=== PATIENT | female | born 2000 | race Caucasian/White ===

== ENCOUNTER 2023-05-06 11:48 | Emergency (ER) | payer BC ==
[~2023-05-06] VITALS: Ht 162.5 cm; Wt 59.0 kg
--- NOTE | 2023-05-06 11:59 | ED GI ---
General Chief Complaint: Abdominal/GI Problems Stated Complaint: VOMITING | ABD PAIN Source of Information: Patient Exam Limitations: No Limitations History of Present Illness Date Seen by Provider: May 06, 2023 Time Seen by Provider: 11:59 Initial Comments Patient is a 23yo female who presents to the Emergency Department with lower ab dominal pain x24h with N/V. She went to the [facility] [place] and was sent here for evaluation. She states she started her menstrual period 2 days ago and it is slightly heavier than normal. No control. No abnormal vaginal discharge. She is having diarrhea. No dysuria/urgency. No known fever. No prios abdominal surgeries. She does smoke marijuana. last use 2 days ago. Has never had vomiting with THC use before. Has not taken anything for symptoms. Only takes an "anxiety" medication. Timing/Duration: 24 Hours Severity/Quality: Severe, Cramping Location: RLQ, LLQ Radiation: No Radiation Modifying Factors: Worsens With Lying down, Worsens With Movement Associated Symptoms: Nausea/Vomiting Allergies and Home Medications Allergies Coded Allergies: No Known Drug Allergies (Unverified , 05/06/23) Patient Home Medication List Home Medication List Reviewed: Yes Ondansetron (Ondansetron Odt) 4 Mg Tab.rapdis, 4 MG SL Q8H PRN for NAUSEA/VOMITING Prescribed by: ARACELI MCCRACKEN on 05/06/23 1432 Review of Systems Review of Systems Constitutional: see HPI, weakness EENTM: No Symptoms Reported Respiratory: No Symptoms Reported Cardiovascular: No Symptoms Reported Gastrointestinal: Abdominal Pain, Diarrhea, Nausea, Vomiting Genitourinary: No Symptoms Reported Musculoskeletal: no symptoms reported Skin: no symptoms reported Psychiatric/Neurological: Headache Physical Exam Vital Signs Vital Signs - First Documented 05/06/23 11:54 Temp 35.8 Pulse 78 Resp 20 B/P (MAP) 121/86 (98) Pulse Ox 100 O2 Delivery Room Air Capillary Refill : Height/Weight/BMI Height: '" Weight: lbs. oz. kg; BMI Method: General Appearance: WD/WN, mild distress HEENT: PERRL/EOMI Respiratory: lungs clear, normal breath sounds, no respiratory distress, no accessory muscle use Cardiovascular: regular rate, rhythm Gastrointestinal: soft, abnormal bowel sounds (Hypoactive); No distended; guarding (voluntary); No rebound; tenderness, other (neg rovsing's) Extremities: normal range of motion, normal inspection Back: no CVA tenderness Neurologic/Psychiatric: alert, normal mood/affect, oriented x 3 Skin: warm/dry, pallor Progress/Results/Core Measures Results/Orders Lab Results Laboratory Tests Test 05/06/23 12:06 05/06/23 12:30 Range/Units White Blood Count 16.4 H 4.3-11.0 10^3/uL Red Blood Count 5.46 H 3.80-5.11 10^6/uL Hemoglobin 13.5 11.5-16.0 g/dL Hematocrit 42 35-52 % Mean Corpuscular Volume 77 L 80-99 fL Mean Corpuscular Hemoglobin 25 25-34 pg Mean Corpuscular Hemoglobin Concent 32 32-36 g/dL Red Cell Distribution Width 13.5 10.0-14.5 % Platelet Count 345 130-400 10^3/uL Mean Platelet Volume 10.8 9.0-12.2 fL Immature Granulocyte % (Auto) 1 % Neutrophils (%) (Auto) 91 H 42-75 % Lymphocytes (%) (Auto) 6 L 12-44 % Monocytes (%) (Auto) 2 0-12 % Eosinophils (%) (Auto) 0 0-10 % Basophils (%) (Auto) 0 0-10 % Neutrophils # (Auto) 14.9 H 1.8-7.8 10^3/uL Lymphocytes # (Auto) 1.0 1.0-4.0 10^3/uL Monocytes # (Auto) 0.4 0.0-1.0 10^3/uL Eosinophils # (Auto) 0.0 0.0-0.3 10^3/uL Basophils # (Auto) 0.1 0.0-0.1 10^3/uL Immature Granulocyte # (Auto) 0.1 0.0-0.1 10^3/uL Neutrophils % (Manual) 94 % Lymphocytes % (Manual) 4 % Monocytes % (Manual) 2 % Blood Morphology Comment NORMAL Sodium Level 140 135-145 MMOL/L Potassium Level 3.9 3.6-5.0 MMOL/L Chloride Level 105 98-107 MMOL/L Carbon Dioxide Level 14 L 21-32 MMOL/L Anion Gap 21 H 5-14 MMOL/L Blood Urea Nitrogen 15 7-18 MG/DL Creatinine 1.03 0.60-1.30 MG/DL Estimat Glomerular Filtration Rate 79 BUN/Creatinine Ratio 15 Glucose Level 141 H 70-105 MG/DL Calcium Level 10.3 H 8.5-10.1 MG/DL Corrected Calcium 8.5-10.1 MG/DL Total Bilirubin 0.9 0.1-1.0 MG/DL Aspartate Amino Transf (AST/SGOT) 15 5-34 U/L Alanine Aminotransferase (ALT/SGPT) 13 0-55 U/L Alkaline Phosphatase 70 40-136 U/L Total Protein 8.9 H 6.4-8.2 GM/DL Albumin 5.1 H 3.2-4.5 GM/DL Serum Test, Qualitative NEGATIVE NEGATIVE SARS-CoV-2 RNA (RT-PCR) Not Detected Not Detecte My Orders Orders - ARACELI MCCRACKEN MD Ed Iv/Invasive Line Start (05/06/23 12:08) Cbc And Automated Diff (05/06/23 12:08) Comprehensive Metabolic Panel (05/06/23 12:08) Urine Bedside (05/06/23 12:08) Lactated Ringers 1,000 Ml (Lactated Ring (05/06/23 12:15) Ondansetron Injection (Ondansetron Inj (05/06/23 12:15) Hcg,Qualitative Serum (05/06/23 12:17) Covid 19 Inhouse Test (05/06/23 12:17) Manual Differential (05/06/23 12:06) Lactated Ringers 1,000 Ml (Lactated Ring (05/06/23 13:15) Ketorolac Injection (Ketorolac Injection (05/06/23 13:30) Ct Abdomen/Pelvis W (05/06/23 13:16) Iohexol Injection (Omnipaque 350 Mg/Ml 1 (05/06/23 13:30) Received Contrast (Hold Metformin- Contr (05/06/23 13:30) Ns (Ivpb) 100 Ml (Sodium Chloride 0.9% 1 (05/06/23 13:30) Prochlorperazine Injection (Prochlorpera (05/06/23 15:00) Diphenhydramine Injection (Diphenhydram (05/06/23 15:00) Medications Given in ED Vital Signs/I&O 05/06/23 05/06/23 11:54 16:15 Temp 35.8 35.8 Pulse 78 70 Resp 20 21 B/P (MAP) 121/86 (98) 121/69 Pulse Ox 100 100 O2 Delivery Room Air Room Air 05/07/23 00:00 Intake Total 2000 ml Balance 2000 ml Progress Progress Note #1: Time: 13:18 Progress Note Patient re-evaluated at this time, nausea better, pain a "3-4". She is more specifically tender to palpation in the LLQ. No rebound tenderness. Noted to have leukocytosis of 16k. But is also profoundly dry - CO2 on Chem is 14. She is not quite finished with her first liter of IVF; second liter ordered and toradol 15mg for pain. Will CT to rule out appy vs colitis. Progress Note #2: Time: 14:33 Progress Note Patient seen and examined by me. Evaluation today includes physical exam, CBC, Chem-12, serum test, COVID test. CT abdomen and pelvis with IV contrast also obtained. Pertinent physical exam findings reveal well-developed well-nourished female in moderate distress due to retching, dry heaving. Vital signs are stable. She is afebrile. Oral mucosa is dry. The patient is very pale. Heart is regular, not tachycardic, lungs are clear. Abdomen is diffusely tender in the lower quadrants bilaterally and in the suprapubic region with voluntary guarding. Very hypoactive bowel sounds are noted. Her abdomen is nondistended. Negative heeltap. Negative Rovsing's. No rebound tenderness. Her skin reveals no rashes. Normal neurologic function. Differential diagnosis includes acute gastroenteritis, acute appendicitis, colitis, viral syndrome. Labs independently reviewed and interpreted by me. I did independently review the patient's urinalysis from outlying facility which was quite concentrated and revealed no evidence of infection. Her CBC shows a white count of 16.4 with 91% segmented neutrophils. Normal hemoglobin hematocrit and platelet count. Chemistry generally unremarkable other than a decreased CO2 at 14 with an anion gap of 21. Suspect lactic acidosis however I did not check a lactic acid specifically. Her glucose was mildly elevated at 141. Serum test is negative, COVID test is negative. Patient is treated in the emergency department with a milligrams of Zofran IV, she received 2 L of lactated Ringer's IV and subsequent to that 5 mg of Compazine and [address] of [address]ryl IV. CT abdom en and pelvis with IV contrast per radiology revealed no evidence of acute surgical pathology. Patient had persistent nausea until the Compazine and Benadryl were administered. Once her IV fluids were completed she felt much better. As she has no evidence of acute appendicitis or any other acute surgical pathology on CT most likely scenario is acute gastroenteritis/colitis. Also concerning would be the fact that the patient is a daily marijuana smoker although she has not had hyperemesis due to THC in the past that is a distinct possibility. Patient was recommended to discontinue marijuana usage. She was given a prescription for Zofran for home as well as advised to take [id number] Pepcid for the next week. She verbalized understanding of the discharge instructions. Return precautions provided in both verbal and written format. All questions are sought and answered. Patient is improved at discharge Diagnostic Imaging Diagonstic Imaging: CT Comments [facility], [place] NAME: KETANDILSHAD Claude MED REC#: [id number] PT STATUS: REG ER : 2000 PHYSICIAN: ARACELI MCCRACKEN MD ADMIT DATE: 05/06/23/ER Draft Date of Exam:05/06/23 CT ABDOMEN/PELVIS W PROCEDURE: CT abdomen and pelvis with contrast. TECHNIQUE: Multiple contiguous axial images were obtained through the abdomen and pelvis after administration of intravenous contrast. Auto Exposure Controls were utilized during the CT exam to meet ALARA standards for radiation dose reduction. All CT scans use one or more of the following dose optimizing techniques: automated exposure control, MA and/or KvP adjustment based on patient size and exam type or iterative reconstruction. Date: May 06, 2023. Indication: 23-year-old female, nausea and vomiting. Left lower quadrant abdominal pain. Comparison: None. Findings: There is a 4 mm right lower lobe pulmonary nodule on axial image 9. The additional visualized portions of the lung bases are clear. The heart is not enlarged. There is no pericardial effusion. The liver is unremarkable in size and contour. There is no identified liver lesion. The main, right, left portal veins are patent. The gallbladder is unremarkable. There is no biliary ductal dilation. Unremarkable appearance of the pancreatic parenchyma. The spleen is normal in size. The adrenal glands are unremarkable. Unremarkable appearance of the renal parenchyma. The urinary collecting systems are not distended. There is no identified renal or ureteral stone. Urinary bladder is underdistended and not well evaluated. Low attenuation tubular structure in the vagina most likely reflects a tampon. The intestinal tract is not distended. There is low-attenuation wall thickening of the transverse colon and also involving the right colon. The terminal ileum is unremarkable. There is no evidence of acute appendicitis. There is no free intraperitoneal air. There is no drainable fluid collection. No free fluid in the abdomen or pelvis. There is no identified abnormally enlarged lymph node in the abdomen or pelvis meeting CT size criteria for adenopathy. There is no identified acute bony abnormality. Impression: 1. Wall thickening of the right colon and transverse colon consistent with a nonspecific colitis. Infectious and inflammatory etiologies are favored. Dictated on workstation # [id number] Dict: 05/06/23 1349 Trans: 05/06/23 1400 MARY [id number] Interpreted by: TAZ HOLLIS MD Electronically signed by: Departure Impression Primary Impression: Nausea and vomiting Qualified Codes: R11.14 - Bilious vomiting Additional Impression: Colitis Disposition: HOME, SELF-CARE Condition: Improved Departure-Patient Inst. Decision time for Depature: 14:28 Referrals: NO,LOCAL PHYSICIAN (PCP/Family) Primary Care Physician Patient Instructions: Nausea and Vomiting, Adult ED Add. Discharge Instructions: Clear Liquids for the next 24 hours and then slowly advance your diet as tolerated. Use the Ondansetron (Zofran) 4mg every 6-8 hours for nausea. I would suggest over the counter Famotidine (Pepcid) 20mg twice a day for 1 week - while your gut is getting back to normal. If you develop a fever over 101, worsening symptoms (blood in your stool or vomit) please return to the Emergency Department for re-evaluation. No smoking for the next week. Scripts Ondansetron (Ondansetron Odt) 4 Mg Tab.rapdis 4 MG SL Q8H PRN for NAUSEA/VOMITING, #15 TAB Prov: ARACELI MCCRACKEN MD 05/06/23 Work/School Note: School/Childcare Release, Date Seen in the Emergency Department: May 06, 2023 Time Dismissed from Emergency Department: 14:32 Return to School: May 08, 2023 Work Release Form Date Seen in the Emergency Department: May 06, 2023 Return to Work: May 08, 2023 ARACELI MCCRACKEN MD May 06, 2023 11:59
[2023-05-06] MEDS ORDERED: ONDANSETRON INJECTION 4 MG/2 ML (SDV) IVP ONE (12:15)
[2023-05-06 12:21] LABS: BASOPHILS # (AUTO) 0.1 10^3/uL (0.0-0.1); BASOPHILS % (AUTO) 0 % (0-10); EOSINOPHILS % (AUTO) 0 % (0-10); HEMATOCRIT 42 % (35-52); HEMOGLOBIN 13.5 g/dL (11.5-16.0); LYMPHOCYTES % (AUTO) 6 % (12-44); MEAN CORPUSCULAR HEMOGLOBIN 25 pg (25-34); MEAN CORPUSCULAR HGB CONC 32 g/dL (32-36); MEAN CORPUSCULAR VOLUME 77 fL (80-99); MEAN PLATELET VOLUME 10.8 fL (9.0-12.2); MONOCYTES # (AUTO) 0.4 10^3/uL (0.0-1.0); MONOCYTES % (AUTO) 2 % (0-12); NEUTROPHILS # (AUTO) 14.9 10^3/uL (1.8-7.8); NEUTROPHILS % (AUTO) 91 % (42-75); PLATELET COUNT 345 10^3/uL (130-400); WHITE BLOOD COUNT 16.4 10^3/uL (4.3-11.0)
[2023-05-06 12:23] LABS: ALBUMIN 5.1 GM/DL (3.2-4.5); CHLORIDE 105 MMOL/L (98-107); POTASSIUM 3.9 MMOL/L (3.6-5.0); SODIUM 140 MMOL/L (135-145)
[2023-05-06 12:24] LABS: CALCIUM 10.3 MG/DL (8.5-10.1)
[2023-05-06 12:25] LABS: GLUCOSE 141 MG/DL (70-105)
[2023-05-06] MEDS: LACTATED RINGERS 1,000 ML 1,000 ML IV SCH ×2 (12:25→14:12)
[2023-05-06 12:26] LABS: TOTAL PROTEIN 8.9 GM/DL (6.4-8.2)
[2023-05-06 12:27] LABS: BILIRUBIN,TOTAL 0.9 MG/DL (0.1-1.0); CARBON DIOXIDE 14 MMOL/L (21-32)
[2023-05-06 12:29] LABS: ALKALINE PHOSPHATASE 70 U/L (40-136); CREATININE SERUM 1.03 MG/DL (0.60-1.30); GFR ESTIMATED 79
[2023-05-06 12:30] LABS: BUN/CREATININE RATIO 15
[2023-05-06 12:32] LABS: ALANINE AMINOTRANSFERASE 13 U/L (0-55)
[2023-05-06 12:34] LABS: LYMPHOCYTES % (MANUAL) 4 %; MONOCYTES % (MANUAL) 2 %; NEUTROPHILS % (MANUAL) 94 %; RBC MORPH NORMAL
[2023-05-06] MEDS ORDERED: LACTATED RINGERS 1,000 ML 1,000 ML IV SCH (13:15)
[2023-05-06] MEDS ORDERED: IOHEXOL 350 MG/ML 100 ML (OMNIPAQUE 350) VIAL IV ONE (13:30)
[2023-05-06] MEDS ORDERED: HOLD METFORMIN - RECEIVED CONTRAST 20 ML VIAL IV SCH (13:30)
[2023-05-06] MEDS ORDERED: NS 100 ML (IVPB) BAG IV ONE (13:30)
[2023-05-06] MEDS ORDERED: KETOROLAC INJ 15 MG/ML VIAL IVP ONE (13:30)
--- NOTE | 2023-05-06 14:00 | Diagnostic Imaging Report ---
PROCEDURE: CT abdomen and pelvis with contrast. TECHNIQUE: Multiple contiguous axial images were obtained through the abdomen and pelvis after administration of intravenous contrast. Auto Exposure Controls were utilized during the CT exam to meet ALARA standards for radiation dose reduction. All CT scans use one or more of the following dose optimizing techniques: automated exposure control, MA and/or KvP adjustment based on patient size and exam type or iterative reconstruction. Date: May 06, 2023. Indication: 23-year-old female, nausea and vomiting. Left lower quadrant abdominal pain. Comparison: None. Findings: There is a 4 mm right lower lobe pulmonary nodule on axial image 9. The additional visualized portions of the lung bases are clear. The heart is not enlarged. There is no pericardial effusion. The liver is unremarkable in size and contour. There is no identified liver lesion. The main, right, left portal veins are patent. The gallbladder is unremarkable. There is no biliary ductal dilation. Unremarkable appearance of the pancreatic parenchyma. The spleen is normal in size. The adrenal glands are unremarkable. Unremarkable appearance of the renal parenchyma. The urinary collecting systems are not distended. There is no identified renal or ureteral stone. Urinary bladder is underdistended and not well evaluated. Low attenuation tubular structure in the vagina most likely reflects a tampon. The intestinal tract is not distended. There is low-attenuation wall thickening of the transverse colon and also involving the right colon. The terminal ileum is unremarkable. There is no evidence of acute appendicitis. There is no free intraperitoneal air. There is no drainable fluid collection. No free fluid in the abdomen or pelvis. There is no identified abnormally enlarged lymph node in the abdomen or pelvis meeting CT size criteria for adenopathy. There is no identified acute bony abnormality. Impression: 1. Wall thickening of the right colon and transverse colon consistent with a nonspecific colitis. Infectious and inflammatory etiologies are favored. Dictated by: Dictated on workstation # [id number]
[2023-05-06] MEDS ORDERED: ONDA4TAB11 SL (14:32)
[2023-05-06] MEDS ORDERED: diphenhydrAMINE INJ 50 MG/ML VIAL IVP ONE (15:00)
[2023-05-06] MEDS ORDERED: PROCHLORPERAZINE INJ 10 MG/2ML VIAL IV ONE (15:00)
[2023-05-06 16:15] VITALS: BP 121/69
== END 2023-05-06 16:21 | disposition home or self-care (01) ==
LOC: ER 11:52
DX: K52.9 Noninfective gastroenteritis and colitis, unspecified (principal); R79.81 Abnormal blood-gas level; Z20.822 Contact with and (suspected) exposure to COVID-19
CPT/HCPCS: 36415; 74177; 80053; 84703; 85007; 85027; 87636

== ENCOUNTER 2023-05-30 16:53 | Emergency (ER) | payer BC ==
[~2023-05-30] VITALS: Ht 162 cm; Wt 61.2 kg
[~2023-05-30 16:53] MED LIST: ONDA4TAB11 SL
[2023-05-30] MEDS ORDERED: NS IV 1000 ML 1,000 ML ONE (17:19)
[2023-05-30] MEDS ORDERED: ONDANSETRON INJECTION 4 MG/2 ML (SDV) ONE (17:19)
--- NOTE | 2023-05-30 17:24 | ED Abdominal Pain ---
General Chief Complaint: Abdominal/GI Problems Stated Complaint: VOMITING/LOWER ABD PAIN Nursing Triage Note: PATIENT PRESENTS TO ED WITH C/O ABD. PAIN THAT STARTED DURING THE DAY YESTERDAY. PATIENT STATES SHE WOKE UP THIS MORNING AROUND 0800 VOMITING. PATIENT WAS SEEN FOR THIS ROUGHLY AROUND 05/06/23 AND WAS DX WITH INFLAMMATION OF THE COLON. PATIENT AND BOYFRIEND AMB. TO ROOM 10. Source of Information: Patient Exam Limitations: No Limitations History of Present Illness Date Seen by Provider: May 30, 2023 Time Seen by Provider: 17:21 Initial Comments Patient is a 23-year-old female presents ED with lower abdominal pain. Abdominal pain started yesterday. Described as pressure and fairly constant. Started vomiting today described as yellowish. She states she was here May [address] scan of her abdomen pelvis which was positive for colitis. She was treated with Zofran and conservative measures with improvement. She states today symptoms feel very similar. She denies any pain with urination frequent urination, cough, runny nose, sore throat, chest pain or shortness of breath. Last menstrual cycle earlier this month. No recent travels, change in medications or any change in foods. Patient actively vomiting on arrival. Patient denies any diarrhea, rash. She states she was seen here earlier this month for similar type symptoms diagnosed with colitis treated with Zofran with improvement Allergies and Home Medications Allergies Coded Allergies: No Known Drug Allergies (Unverified , 05/06/23) Patient Home Medication List Home Medication List Reviewed: Yes Ondansetron (Ondansetron Odt) 4 Mg Tab.rapdis, 4 MG SL Q8H PRN for NAUSEA/VOMITING Prescribed by: ARACELI MCCRACKEN on 05/06/23 143 Prochlorperazine Maleate (Compazine) 5 Mg Tablet, 5 MG PO Q6H Prescribed by: MAYDA FRANCISCO on 05/30/232009 Prochlorperazine Maleate (Compazine) 5 Mg Tablet, 5 MG PO Q6H Prescribed by: MAYDA FRANCISCO on 05/30/232040 Review of Systems Review of Systems Constitutional: No chills, No diaphoresis, No malaise, No weakness EENTM: No Double Vision, No Eye Pain Respiratory: Denies Cough, Denies Orthopnea Cardiovascular: Denies Chest Pain Gastrointestinal: Abdominal Pain; Denies Diarrhea; Nausea, Vomiting Genitourinary: Denies Burning, Denies Discharge, Denies Drainage, Denies Frequency, Denies Flank Pain Musculoskeletal: No back pain, No joint pain Skin: No change in color, No change in hair/nails All Other Systems Reviewed Negative Unless Noted: Yes Past Anycuqn-Rhrjcf-Thxend Hx Patient Social History Tobacco Use?: No Substance use?: Yes Substance type: Marijuana Additional substance use comme: 05/29/23 Alcohol Use?: Yes Alcohol type: Beer, Hard Liquor, Wine Alcohol Frequency: Several times a month Pt feels they are or have been: No Past Medical History Surgery/Hospitalization HX: ANXIETY Last Menstrual Period: May 06, 2023 Physical Exam Vital Signs Vital Signs - First Documented 05/30/23 17:06 Temp 36.2 Pulse 64 Resp 18 B/P (MAP) 130/82 (98) Pulse Ox 98 O2 Delivery Room Air Capillary Refill : Less Than 3 Seconds Height/Weight/BMI Height: '" Weight: lbs. oz. kg; 23.00 BMI Method: General Appearance: WD/WN, no apparent distress HEENT: PERRL/EOMI, normal ENT inspection, TMs normal, pharynx normal Neck: non-tender, full range of motion, supple Respiratory: chest non-tender, lungs clear, normal breath sounds, no respiratory distress, no accessory muscle use Cardiovascular: regular rate, rhythm, no edema, no gallop, no JVD Gastrointestinal: normal bowel sounds, soft, no organomegaly, tenderness (Left and right lower quadrant tenderness, suprapubic tenderness. 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, no motor/sensory deficits, alert, normal mood/affect, oriented x 3 Skin: normal color, warm/dry Progress/Results/Core Measures Results/Orders Lab Results Laboratory Tests Test 05/30/23 17:06 05/30/23 17:27 Range/Units White Blood Count 13.7 H 4.3-11.0 10^3/uL Red Blood Count 5.33 H 3.80-5.11 10^6/uL Hemoglobin 13.3 11.5-16.0 g/dL Hematocrit 41 35-52 % Mean Corpuscular Volume 77 L 80-99 fL Mean Corpuscular Hemoglobin 25 25-34 pg Mean Corpuscular Hemoglobin Concent 32 32-36 g/dL Red Cell Distribution Width 14.4 10.0-14.5 % Platelet Count 263 130-400 10^3/uL Mean Platelet Volume 11.1 9.0-12.2 fL Immature Granulocyte % (Auto) 0 % Neutrophils (%) (Auto) 84 H 42-75 % Lymphocytes (%) (Auto) 11 L 12-44 % Monocytes (%) (Auto) 4 0-12 % Eosinophils (%) (Auto) 0 0-10 % Basophils (%) (Auto) 0 0-10 % Neutrophils # (Auto) 11.4 H 1.8-7.8 10^3/uL Lymphocytes # (Auto) 1.5 1.0-4.0 10^3/uL Monocytes # (Auto) 0.6 0.0-1.0 10^3/uL Eosinophils # (Auto) 0.1 0.0-0.3 10^3/uL Basophils # (Auto) 0.1 0.0-0.1 10^3/uL Immature Granulocyte # (Auto) 0.1 0.0-0.1 10^3/uL Sodium Level 141 135-145 MMOL/L Potassium Level 3.5 L 3.6-5.0 MMOL/L Chloride Level 107 98-107 MMOL/L Carbon Dioxide Level 21 21-32 MMOL/L Anion Gap 13 5-14 MMOL/L Blood Urea Nitrogen 7 7-18 MG/DL Creatinine 0.78 0.60-1.30 MG/DL Estimat Glomerular Filtration Rate 111 BUN/Creatinine Ratio 9 Glucose Level 98 70-105 MG/DL Calcium Level 10.0 8.5-10.1 MG/DL Corrected Calcium 8.5-10.1 MG/DL Total Bilirubin 0.7 0.1-1.0 MG/DL Aspartate Amino Transf (AST/SGOT) 12 5-34 U/L Alanine Aminotransferase (ALT/SGPT) 11 0-55 U/L Alkaline Phosphatase 60 40-136 U/L Total Protein 8.8 H 6.4-8.2 GM/DL Albumin 5.0 H 3.2-4.5 GM/DL Lipase 10 8-78 U/L Urine Color YELLOW Urine Clarity CLEAR Urine pH >=9.0 5-9 Urine Specific [place] 1.020 1.016-1.022 Urine Protein 2+ H NEGATIVE Urine Glucose (UA) NEGATIVE NEGATIVE Urine Ketones 4+ H NEGATIVE Urine Nitrite NEGATIVE NEGATIVE Urine Bilirubin 1+ H NEGATIVE Urine Urobilinogen 1.0 < = 1.0 MG/DL Urine Leukocyte Esterase NEGATIVE NEGATIVE Urine RBC (Auto) NEGATIVE NEGATIVE Urine RBC RARE /HPF Urine WBC 2-5 /HPF Urine Squamous Epithelial Cells 25-50 H /HPF Urine Crystals PRESENT H /LPF Urine Amorphous Sediment RARE [place] PHOSPHATE H /LPF Urine Bacteria LARGE H /HPF Urine Casts NONE /LPF Urine Mucus LARGE H /LPF Urine Culture Indicated NO Urine Test NEGATIVE NEGATIVE Urine Opiates Screen NEGATIVE NEGATIVE Urine Oxycodone Screen NEGATIVE NEGATIVE Urine Methadone Screen NEGATIVE NEGATIVE Urine Propoxyphene Screen NA NEGATIVE Urine Barbiturates Screen NEGATIVE NEGATIVE Ur Tricyclic Antidepressants Screen NEGATIVE NEGATIVE Urine Phencyclidine Screen NEGATIVE NEGATIVE Urine Amphetamines Screen NEGATIVE NEGATIVE Urine Methamphetamines Screen NEGATIVE NEGATIVE Urine Benzodiazepines Screen NEGATIVE NEGATIVE Urine Cocaine Screen NEGATIVE NEGATIVE Urine Cannabinoids Screen POSITIVE H NEGATIVE My Orders Orders - YING NOVA Ua Culture If Indicated (05/30/23 16:54) Hcg,Qualitative Urine (05/30/23 16:54) Cbc And Automated Diff (05/30/23 17:20) Comprehensive Metabolic Panel (05/30/23 17:20) Lipase (05/30/23 17:20) Ondansetron Injection (Ondansetron Inj (05/30/23 17:19) Ns Iv 1000 Ml (Ns Iv 1000 Ml) (05/30/23 17:19) Ondansetron Injection (Ondansetron Inj (05/30/23 17:45) Ns Iv 1000 Ml (Ns Iv 1000 Ml) (05/30/23 17:31) Drug Screen Stat (Urine) (05/30/23 17:45) Promethazine Injection (Promethazine I (05/30/23 18:00) Ns Iv 1000 Ml (Ns Iv 1000 Ml) (05/30/23 18:09) Ondansetron Injection (Ondansetron Inj (05/30/23 19:00) Ns Iv 1000 Ml (Ns Iv 1000 Ml) (05/30/23 18:53) Prochlorperazine Injection (Prochlorpera (05/30/23 19:00) Diphenhydramine Injection (Diphenhydram (05/30/23 19:45) Medications Given in ED Vital Signs/I&O 05/30/23 05/30/23 17:06 20:48 Temp 36.2 36.8 Pulse 64 57 Resp 18 18 B/P (MAP) 130/82 (98) 115/72 Pulse Ox 98 98 O2 Delivery Room Air Room Air Blood Pressure Mean: 98 Departure Communication (PCP) Patient is a 23-year-old female presents ED with vomiting. History of similar symptoms. Patient Was seen here May 06 and diagnosed with colitis treated with antinausea medication with improvement. The symptoms did return. There was concern for hyperemesis cannabinoid syndrome. Generalized lab work started on liter fluid was given Zofran. Continue having nausea and vomiting here. Received Phenergan with very minimal improvement. CBC, CMP, lipase, urinalysis was ordered. Patient white blood count 13.7. Chemistry showed a potassium of 3.5 normal kidney function liver function. Urinalysis without evidence of infection. No evidence of . Positive for THC. CT abdomen pelvis on May 06 showed wall thickening of the right colon and transverse colon consistent with nonspecific colitis. She was not treated with any type antibiotics. No recent antibiotic use. according to mother no known family history of inflammatory bowel disease. She did test positive for marijuana which makes this suspicious for more hyperemesis cannabinoid syndrome. After a second liter of fluid prochlorperazine and Benadryl patient's symptoms did improve. She was able to tolerate p.o. fluids ice as well. Imaging was held. Does not appear to be surgical. Discussed following up with outpatient GI for further evaluation for this nonspecific colitis. May require colonoscopy. She states she will follow-up with her primary. Discussed smoking cessation. Will discharge with prochlorperazine as she states this worked the best for a few days. Clear liquids for the next 2 or 3 days. If any worsening symptoms return back to ED Impression Primary Impression: Nausea and vomiting Disposition: 01 HOME, SELF-CARE Condition: Stable Departure-Patient Inst. Decision time for Depature: 20:08 Referrals: [facility] – [place] NO,LOCAL PHYSICIAN (PCP) Primary Care Physician Patient Instructions: Nausea and Vomiting, Adult ED Scripts Prochlorperazine Maleate (Compazine) 5 Mg Tablet 5 MG PO Q6H, #12 TAB Prov: YING NOVA 05/30/23 YING NOVA May 30, 2023 17:24
[2023-05-30 17:25] LABS: BASOPHILS # (AUTO) 0.1 10^3/uL (0.0-0.1); BASOPHILS % (AUTO) 0 % (0-10); EOSINOPHILS # (AUTO) 0.1 10^3/uL (0.0-0.3); EOSINOPHILS % (AUTO) 0 % (0-10); HEMATOCRIT 41 % (35-52); HEMOGLOBIN 13.3 g/dL (11.5-16.0); LYMPHOCYTES # (AUTO) 1.5 10^3/uL (1.0-4.0); LYMPHOCYTES % (AUTO) 11 % (12-44); MEAN CORPUSCULAR HEMOGLOBIN 25 pg (25-34); MEAN CORPUSCULAR HGB CONC 32 g/dL (32-36); MEAN CORPUSCULAR VOLUME 77 fL (80-99); MEAN PLATELET VOLUME 11.1 fL (9.0-12.2); MONOCYTES # (AUTO) 0.6 10^3/uL (0.0-1.0); MONOCYTES % (AUTO) 4 % (0-12); NEUTROPHILS # (AUTO) 11.4 10^3/uL (1.8-7.8); NEUTROPHILS % (AUTO) 84 % (42-75); PLATELET COUNT 263 10^3/uL (130-400); WHITE BLOOD COUNT 13.7 10^3/uL (4.3-11.0)
[2023-05-30] MEDS ORDERED: NS IV 1000 ML 1,000 ML IV STA ×3 (17:31→18:53)
[2023-05-30 17:32] LABS: CHLORIDE 107 MMOL/L (98-107); POTASSIUM 3.5 MMOL/L (3.6-5.0); SODIUM 141 MMOL/L (135-145)
[2023-05-30 17:35] LABS: GLUCOSE 98 MG/DL (70-105); TOTAL PROTEIN 8.8 GM/DL (6.4-8.2)
[2023-05-30 17:36] LABS: CARBON DIOXIDE 21 MMOL/L (21-32)
[2023-05-30 17:37] LABS: BILIRUBIN,TOTAL 0.7 MG/DL (0.1-1.0)
[2023-05-30 17:38] LABS: ALKALINE PHOSPHATASE 60 U/L (40-136)
[2023-05-30 17:39] LABS: CREATININE SERUM 0.78 MG/DL (0.60-1.30); GFR ESTIMATED 111
[2023-05-30 17:40] LABS: BUN/CREATININE RATIO 9
[2023-05-30 17:41] LABS: ALANINE AMINOTRANSFERASE 11 U/L (0-55)
[2023-05-30 17:42] LABS: LIPASE 10 U/L (8-78)
[2023-05-30] MEDS ORDERED: ONDANSETRON INJECTION 4 MG/2 ML (SDV) IVP ONE ×2 (17:45→19:00)
[2023-05-30 17:53] LABS: CLARITY,URINE CLEAR; COLOR,URINE YELLOW; GLUCOSE, URINE (UA) NEGATIVE (NEGATIVE); PH,URINE >=9.0 (5-9); PROTEIN,URINE 2+ (NEGATIVE)
[2023-05-30 17:54] LABS: AMORPHOUS SEDIMENT,UR RARE AMOR PHOSPHATE /LPF; BACTERIA,URINE LARGE /HPF; BILIRUBIN,URINE 1+ (NEGATIVE); KETONES,URINE 4+ (NEGATIVE); LEUKOCYTE ESTERASE ,URINE NEGATIVE (NEGATIVE); NITRITE,URINE NEGATIVE (NEGATIVE); RBC,URINE RARE /HPF; SQUAMOUS EPITHELIAL CELL,UR 25-50 /HPF
[2023-05-30] MEDS ORDERED: PROMETHAZINE INJ 25 MG/ML VIAL IVP ONE (18:00)
[2023-05-30 18:15] LABS: AMPHETAMINE SCREEN, URINE NEGATIVE (NEGATIVE); BARBITURATE SCREEN URINE NEGATIVE (NEGATIVE); CANNABINOID SCREEN, URINE POSITIVE (NEGATIVE); COCAINE SCREEN URINE NEGATIVE (NEGATIVE); METHADONE STAT NEGATIVE (NEGATIVE); OPIATE SCREEN URINE NEGATIVE (NEGATIVE); OXYCODONE STAT NEGATIVE (NEGATIVE); TRICYCLIC ANTIDEPRESSANTS SCRE NEGATIVE (NEGATIVE)
[2023-05-30] MEDS ORDERED: PROCHLORPERAZINE INJ 10 MG/2ML VIAL IV ONE (19:00)
[2023-05-30] MEDS ORDERED: diphenhydrAMINE INJ 50 MG/ML VIAL IVP ONE (19:45)
[2023-05-30] MEDS ORDERED: PROC5TAB52 PO ×2 (20:10→20:41)
[2023-05-30 20:48] VITALS: BP 115/72
== END 2023-05-30 20:48 | disposition home or self-care (01) ==
LOC: EDUNIT# 16:53 → ER 16:55
DX: R11.2 Nausea with vomiting, unspecified (principal); R10.32 Left lower quadrant pain; R10.31 Right lower quadrant pain
CPT/HCPCS: 36415; 80053; 80306; 81000; 83690; 84703; 85025; 96361; 96374; 96375